=== PATIENT | female | born 1945 | race African-American/Black ===

== ENCOUNTER 2017-03-09 14:42 | Inpatient (IN) | payer OTHER, MEDICARE ==
[~2017-03-09] VITALS: Ht 162.6 cm; Wt 40.9 kg
--- NOTE | ~2017-03-09 | HC ---
[facility] [place] [address] CONSULTATION Name: KELLIE MONROY MEAGHAN Room #: 452-P [facility] IN M.R.#: [id number] Admission: 03/09/17 Attend Phys: Tate Perez MD Discharge: 03/17/17 Date of : 49 Report #: [id number] THIS REPORT FOR: //name// CC: Tate Sanderson DATE OF SERVICE: 03/11/2017 REASON FOR CONSULTATION: Acute respiratory failure. Forty minutes critical care time. IMPRESSION: 1. Acute hypoxic hypercapnic respiratory failure. 2. Metabolic acidosis. 3. 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 4. Crohn's. 5. Possible sepsis. 6. Chronic hypotension, on midodrine. 7. Elevated troponin. PLAN: We will keep on ventilator overnight, continue TPN. We will give fluid bolus. We will check and treat with hydrocortisone for now because of history of steroid use. HISTORY OF PRESENT ILLNESS: A 71-year-old female with history of Crohn's disease, ileostomy, was cachectic. PEG was placed in 2016, improved appetite, was able to have PEG removed; however, continued to have drainage and was admitted because of PEG site pain and drainage and taken to surgery today. Postop, was awakening, was extubated; however, shortly thereafter developed decreasing mental status and desaturation requiring reintubation. Surgery went well. Discussed with anesthesia as well as Dr. Jiang. PAST MEDICAL HISTORY: MEDICATIONS: Included mirtazapine, prednisone 20 daily, paroxetine, Zofran, Florinef, enoxaparin. SURGERIES: In the past include ileostomy, appendectomy, cholecystectomy. FAMILY HISTORY: Noncontributory. SOCIAL HISTORY: Negative tobacco or ETOH. REVIEW OF SYSTEMS: Included Crohn's, hypertension, asthma, GERD, anxiety, depression, osteoporosis per chart. Otherwise, none indicated. [facility] [address] [place] [address] CONSULTATION Name: KELLIE MONROY MEAGHAN Room #: 452-P [facility] IN [facility]#: [id number] Admission: 03/09/17 Attend Phys: Tate Perez MD Discharge: 03/17/17 Date of : 49 Report #: [id number] PHYSICAL EXAMINATION: VITAL SIGNS: Temperature 97.4, pulse 85, respiratory rate 24, BP 74/58. EYES: Negative icterus. LUNGS: Endotracheal tube in place. Subq air noted, left greater than right. HEART: Regular. ABDOMEN: Bowel sounds present, but very decreased. EXTREMITIES: Showed no definite edema. Lab and x-ray were reviewed. Forty minutes critical care time spent. <ELECTRONICALLY SIGNED> By: Ulysses Torres MD 03/21/17 1511 2220 0131 Ulysses Torres MD /nt
--- NOTE | ~2017-03-09 | EKG ---
[address] [employer] [place] [address] ELECTROCARDIOGRAM REPORT Name: KELLIE MONROY Room #: 241-P ADM IN M.R.#: [id number] Admission: 03/09/17 Attend Phys: Tate Perez MD Discharge: Date of : 49 Report #: [id number] THIS REPORT FOR: //name// [facility] Test Date: 2017-03-11 Test Time: 15:03:28 Pat Name: KELLIE MONROY Department: Room: 241 Gender: F Chemistry Laboratory Technician: Ren DUNCAN : 1945 Requested By: Paulino Hill Order Number: [id number] MD: Ignacio Evangelista Measurements Intervals [place] Rate: 85 P: 83 CO: 137 QRS: 79 QRSD: 74 T: 83 QT: 362 QTc: 431 Interpretive Statements Sinus rhythm Atrial premature complexes Poor septal R-wave progression Compared to ECG 03/25/2016 18:10:24 Atrial premature complex(es) now present Low voltage in the lateral leads no longer present Electronically Signed On 03-13-2017 10:46:38 CDT by Ignacio Evangelista [email or web address] <ELECTRONICALLY SIGNED> By: Ignacio Evangelista MD, [facility] 03/13/17 1046 1503 1503 Ignacio Evangelista MD, [facility] /EPI
--- NOTE | ~2017-03-09 | 2DMMODE ---
[facility] [address] [place] [address] 2 D/M-MODE ECHOCARDIOGRAM Name: PORFIRIOKELLIE MEAGHAN Room #: 241-P ADM IN M.R.#: [id number] Admission: 03/09/17 Attend Phys: Tate Perez MD Discharge: Date of : 49 Date of Service: 03/12/17 1351 Report #: [id number] THIS REPORT FOR: //name// APPROVED REPORT Study performed: 03/12/2017 07:48:18 EXAM: Comprehensive 2D, Doppler, and color-flow Echocardiogram Patient Location: Bedside Room #: 241 Status: on-call Other Information Study Quality: Adequate/Patient in ICU on vent. Indications Respiratory failure 2D Dimensions RVDd: 29.33 mm LVEF(%): 26.02 (>50%) IVSd: 7.67 (7-11mm) LVOT Diam: 18.75 (18-24mm) LVDd: 36.44 mm PWd: 7.61 (7-11mm) LVDs: 32.16 (25-40mm) Aortic Root: 32.44 mm Khan's LVEF: 26.02 % Aortic Valve AoV Peak Reji.: 1.12 m/s AO Peak Gr.: 5.02 mmHg LVOT Max P.18 mmHg LVOT Max V: 0.74 m/s DENOTN Vmax: 1.82 cm2 Mitral Valve E/A Ratio: 1.3 MV Decel. Time: 84.04 ms MV E Max Reji.: 0.99 m/s MV A Reji.: 0.78 m/s MV PHT: 24.37 ms IVRT: 59.98 ms Pulmonary Valve PV Peak Reji.: 0.71 m/s PV Peak Gr.: 2.04 mmHg [facility] [address] [place] [address] 2 D/M-MODE ECHOCARDIOGRAM Name: KELLIE MONROY [facility] Room #: [address] [place] [address] IN M.R.#: [id number] Admission: 03/09/17 Attend Phys: Tate Perez MD Discharge: Date of : 49 Date of Service: 03/12/17 1351 Report #: [id number] Tricuspid Valve TR Peak Reji.: 2.51 m/s RAP Estimate: 10.00 mmHg TR Peak Gr.: 25.26 mmHg PA Pressure: 35.00 mmHg Left Ventricle There is normal left ventricular wall thickness. Left ventricular systolic function is decreased. LVEF is 25-30%. Apical "ballooning" could be related to a Takutsubo or stress induced cardiomyopathy This study is not technically sufficient to allow evaluation of the LV diastolic function. Right Ventricle The right ventricle is normal size. Right ventricle is mildly hypokinetic. Atria Left atrium is mildly dilated. The atrial septum is aneurysmal. The right atrium size is normal. Aortic Valve Aortic valve leaflets are mildly thickened. Trace aortic regurgitation. There is no aortic valvular stenosis. Mitral Valve Mitral valve leaflets are mildly thickened. No mitral regurgitation. Tricuspid Valve The tricuspid valve is normal in structure. There is moderate tricuspid regurgitation. Jet is eccentric. The right atrial pressure is estimated at 10 mmHg. There is mild pulmonary hypertension with an estimated PAP of 35mmHg. Pulmonic Valve The pulmonary valve is normal in structure. Trace pulmonic regurgitation. Great Vessels The aortic root is normal in size. Ascending aorta is not well visualized. IVC is normal in size and collapses <50% with inspiration. Pericardium There is no pericardial effusion. [facility] [address] [address] 2 D/M-MODE ECHOCARDIOGRAM Name: KELLIE MONROY [facility] Room #: 241-P [facility] IN .R.#: [id number] Admission: 03/09/17 Attend Phys: Tate Perez MD Discharge: Date of : 49 Date of Service: 03/12/17 1351 Report #: [id number] <Conclusion> Left ventricular systolic function is decreased. LVEF is 25-30%. Apical "ballooning" could be related to a Takutsubo or stress-induced cardiomyopathy Aortic valve leaflets are mildly thickened. No aortic valvular stenosis. Mild insufficiency Mitral valve leaflets are mildly thickened. No mitral regurgitation. Pulmonary artery pressure of 35mmHg There is no pericardial effusion. <ELECTRONICALLY SIGNED> By: Ignacio Evangelista MD, FAC 03/12/17 1351 135 135 Ignacio Evangelista MD, FAC /INF
--- NOTE | ~2017-03-09 | EKG ---
[address] [place] [address] ELECTROCARDIOGRAM REPORT Name: KELLIE MONROY MEAGHAN Room #: 241-P ADM IN M.R.#: [id number] Admission: 03/09/17 Attend Phys: Tate Perez MD Discharge: Date of : 49 Report #: [id number] THIS REPORT FOR: //name// [facility] Test Date: 2017-03-12 Test Time: 08:57:59 Pat Name: KELLIE MONROY Department: Room: 241 P Gender: F Behavior Specialist: FAITH : 1945 Requested By: Ignacio Evangelista Order Number: [id number] MD: Ignacio Evangelista Measurements Intervals [place] Rate: 106 P: 81 [place]: 131 QRS: 86 QRSD: 65 T: 86 QT: 332 QTc: 441 Interpretive Statements Sinus tachycardia Low voltage, extremity leads Nonspecific T abnormalities, lateral leads Compared to ECG 03/25/2016 18:10:24 Atrial premature complex(es) now present Electronically Signed On 03-13-2017 10:53:33 CDT by Ignacio Evangelista [email or web address] <ELECTRONICALLY SIGNED> By: Ignacio Evangelista MD, [facility] 03/13/17 1053 0857 0857 Ignacio Evangelista MD, [facility] /EPI
--- NOTE | ~2017-03-09 | S ---
[facility] [place] [address] SURGICAL PATH RPT PROCEDURE Name: KELLIE WALL MEAGHAN Room #: 452-P ADM IN M.R.#: [id number] Admission: 03/09/17 Date of : 49 Discharge: Report #: [id number] Path Case #: [id number] PATHOLOGY REPORT COLLECTION DATE: 03/11/2017 RECEIVED DATE: 03/11/2017 SUBMITTING PHYS: Dr. Leandro Jiang OTHER PHYS: Dr. Janell Perez SPECIMEN(S) RECEIVED: A.GC fistula remnants B.Enterocutaneous fistula tract * * * * * * * * * * * * FINAL DIAGNOSIS: A. Portion of stomach, "gastrocutaneous fistula remnants," resection: - Fragments of gastric wall, each measuring 1.8 and 3.2 cm showing mild chronic active gastritis. - Negative for intestinal metaplasia or atrophy. B. Fragments of skin and adjacent gastric tissue," enterocutaneous fistula tract", resection: - Marked active inflammation associated with ulceration, compatible with enterocutaneous fistula. (IUV:mgr; 03/15/2017) PATHOLOGIST: Brigitte Galloway M.D. REPORT ELECTRONICALLY SIGNED BY: Brigitte Galloway M.D. DATE/TIME: 03/15/2017 15:26 * * * * * * * * * * * * GROSS PATHOLOGY: A. The specimen is received in formalin labeled "Kellie Wall, GC fistula remnants". Received are two segments of white-sparks, firm soft tissue with staple lines present measuring 1.8 x 0.5 x 0.2 and 3.2 x 1.9 x 1.5 cm in greatest dimensions. Sectioning through the larger segment reveals a fistula measuring 2.0 cm in length. The specimen is submitted representatively in cassette A1. B. The specimen is received in formalin labeled "Kellie Wall, enterocutaneous fistula tract". Received is excision of mcleod-sparks possible skin with attached underlying fibroadipose tissue measuring 2.6 x 1.6 x 2.1 cm in greatest dimensions. There are multiple sutures present on the possible epidermal surface. The surgical margin is inked. The specimen is submitted representatively in cassette B1. [address] [address] SURGICAL PATH RPT PROCEDURE Name: KELLIE WALL MEAGHAN Room #: 452-P ADM IN M.R.#: [id number] Admission: 03/09/17 Date of : 49 Discharge: Report #: [id number] Path Case #: [id number] (CAA; 03/14/2017) CLINICAL HISTORY: GC fistula INITIAL CPT CODE(S): A; 76321 B; 63401 Professional services performed by [facility] at [address], [place] [address] Technical services performed by [facility] at [address] [place] [address]., [address], [place] [address]. [facility] [address] [address] PHONE: [phone] DIRECTOR: Jose Kwan M.D. * * * END OF REPORT * * *
--- NOTE | ~2017-03-09 | HC ---
[facility] [place] [address] CONSULTATION Name: PORFIRIOKELLIE MEAGHAN Room #: 452-P ADM IN M.R.#: [id number] Admission: 03/09/17 Attend Phys: Tate Perez MD Discharge: Date of : 49 Report #: [id number] THIS REPORT FOR: //name// CC: Tate Sanderson DATE OF SERVICE: 03/11/2017 REASON FOR CONSULTATION: Elevated troponin of 0.31. HISTORY OF PRESENT ILLNESS: The patient is a 71-year-old woman with a history of multiple comorbidities including Crohn's disease, chronic diarrhea with severe protein-calorie malnutrition, cachexia, and remote atrial fibrillation in 2014. At that time, she was evaluated by Dr. Cheng with an echocardiogram, which was normal. She now presents with a gastrocutaneous fistula and had a laparoscopic partial gastrectomy and closure of the fistula and adhesiolysis today. Her post-procedural course was notable for progressive respiratory distress and hypoxemia requiring intubation. She is currently sedated and intubated. Per discussion with the nursing staff, she was hypoxemic and tachypneic for a period of time prior to the intubation. An EKG in the setting of respiratory distress was normal. Serial cardiac enzymes were ordered and have been minimally elevated at 0.17 and 0.31. A post-intubation CT scan of the chest demonstrated moderate subcutaneous emphysema along the epigastric region, also involving the left hemithorax, bibasilar atelectasis was present. In review of multiple hospital records, there is no mention of coronary artery disease. No history of heart failure. No orthopnea, paroxysmal nocturnal dyspnea, or lower extremity edema. No recent fevers or chills. ALLERGIES: She is allergic to LACTOSE and PENICILLIN. CURRENT MEDICATIONS: Include cholestyramine, Florinef 0.1 mg daily, midodrine 10 mg 3 times a day, prednisone, paroxetine 10 mg daily, iron, and tramadol for pain. Past history and medical records have been reviewed and include a history of Crohn's disease, asthma, osteoporosis, appendectomy, cholecystectomy, and chronic hypotension. SOCIAL HISTORY: She has never been a smoker, nondrinker. FAMILY HISTORY: Unremarkable for premature coronary disease. REVIEW OF SYSTEMS: Not obtainable. PHYSICAL EXAMINATION: GENERAL: Reveals sedated, intubated woman. [facility] [address] [place] [address] CONSULTATION Name: KELLIE MONROY [facility] Room #: 2[facility] IN M.R.#: [id number] Admission: 03/09/17 Attend Phys: Tate Perez MD Discharge: Date of : 49 Report #: [id number] VITAL SIGNS: Blood pressure is 107/63, heart rate of 90 and regular, she is afebrile, 5 feet 4 inches tall, and 83 pounds. HEENT: There are neither xanthelasma, subcutaneous xanthomata, oral mucosal or digital cyanosis or kyphoscoliosis present. CHEST: Subcutaneous emphysema is noted over the left chest. CARDIAC: Regular rate and rhythm with normal S1, S2. No murmurs or rubs. ABDOMEN: Soft. EXTREMITIES: Without cyanosis, clubbing, or edema. Radial pulses are 2+. NEUROLOGIC: She is sedated with a nonfocal exam. EKG as detailed above. LABORATORY DATA: Sodium is 135, potassium 3.9, creatinine 0.9, and glucose 304. Troponin 0.31. ProBNP of 2649. White count 15,000, hemoglobin 9, hematocrit 29, platelet count 309, and 19% bands. Head CT is normal. IMPRESSION: 1. Hypoxemic respiratory failure. 2. Tiny troponin elevation most consistent with supply-demand mismatch in the setting of hypoxemia, respiratory failure, and probable sepsis. 3. Recent repair of a gastrocutaneous fistula. 4. Crohn's disease, on chronic steroid therapy. 5. Cachexia; anorexia. RECOMMENDATIONS: 1. Echocardiogram with Doppler. 2. Supportive measures. I do not feel that this is an acute ischemic event, but troponin levels reflect current and ongoing stressors. I would have a very conservative approach in this woman with multiple comorbidities and life-limiting processes. Thank you for asking me to participate in her care. <ELECTRONICALLY SIGNED> By: Ignacio Evangelista MD, FACC 03/15/17 1633 1857 0012 Ignacio Evangelista MD, FACC /nt
[~2017-03-09 14:42] MED LIST: ACETAMINOPHEN325 M1 PO; ACIDOPHILUS1 EAC4 PO; AMMONIUM LACTA225 GM TP; AZATHIOPRINE50 MG PO; BIOTENE PBF473 ML PO; BUSPIRONE HCL10 MG PO; BYSTOLIC2.5 MG PO; CALCIUM 500 +1 EAC5 PO; CIPRO250 M1 PO; CYPROHEPTADINE 44 MG PO; DIPHENOXYLATE/A1 TA1 PO; ENOXAPARIN30 MG/0.1 SUBQ; FLORINEF ACETA0.1 MG PO; FLOVENT DISKUS50 MCG IH; IRON325 PO; LORTAB 5-500 T1 EAC1 PO; MAGNESIUM400 MG PO; MIDODRINE HCL 55 M1 PO; OMEPRAZOLE40 MG PO; ONDANSETRON HCL4 M1 IV PUSH; PAXIL10 MG PO; PREDNISONE 10 M10 MG PO; PREDNISONE 20 M20 M1 PO; PREVALITE PACKE1 PKT PO; PROTONIX 20 MG20 M1 PO; PROVENTIL HFA6.7 G1 INH; REMERON15 MG PO; RISEDRONATE SO150 MG PO; SYMBICORT160 MCG/4. INH; UNICOMPLEX M TA1 TA1 PO; ZANTAC 150MG T150 MG PO; ZOFRAN ODT4 MG DISSOLVE; ZOFRAN ODT4 MG SUBLING
[2017-03-09 16:50] VITALS: BP 89/57
[2017-03-09 17:54] LABS: HEMATOCRIT 33.5 % (37.0-47.0); MCH 29.1 pg (26.0-34.0); MCHC 32.7 g/dL (28.0-37.0); RBC 3.77 mil/uL (4.20-5.00); RDW 16.3 % (10.5-14.5); WBC 13.6 thou/uL (4.0-11.0)
[2017-03-09 18:07] LABS: ALBUMIN 2.1 g/dL (3.4-5.0); CALCIUM 8.4 mg/dL (8.5-10.1); CREATININE 1.7 mg/dL (0.6-1.0); POTASSIUM 4.2 mmol/L (3.5-5.1); TOTAL BILIRUBIN 0.5 mg/dL (<0.1-1.0); TOTAL PROTEIN 5.9 g/dL (6.4-8.2)
[2017-03-09 19:50] VITALS: BP 94/69
[2017-03-09] MEDS ORDERED: TRAMADOL 50 MG50 MG PO (20:42)
[2017-03-09 23:30] VITALS: BP 98/73
[2017-03-10 03:50] VITALS: BP 109/74
[2017-03-10 05:50] LABS: ALBUMIN 1.9 g/dL (3.4-5.0); CREATININE 1.3 mg/dL (0.6-1.0); MAGNESIUM 1.9 mg/dL (1.8-2.4); PHOSPHORUS 3.4 mg/dL (2.5-4.9); POTASSIUM 3.3 mmol/L (3.5-5.1); TOTAL BILIRUBIN 0.4 mg/dL (<0.1-1.0); TOTAL PROTEIN 5.4 g/dL (6.4-8.2)
[2017-03-10 08:00] VITALS: BP 103/60
[2017-03-10 16:00] VITALS: BP 110/80
[2017-03-10 20:00] VITALS: BP 93/62
[2017-03-11] VITALS (26 sets, daily range): BP systolic 72–140; BP diastolic 54–81
[2017-03-11 07:54] LABS: HEMATOCRIT 31.4 % (37.0-47.0); HEMOGLOBIN 10.4 gm/dL (12.0-15.0); MCH 29.5 pg (26.0-34.0); MCHC 33.2 g/dL (28.0-37.0); MCV 88.6 fL (80.0-100.0); RBC 3.55 mil/uL (4.20-5.00); RDW 16.3 % (10.5-14.5); WBC 7.5 thou/uL (4.0-11.0)
[2017-03-11 08:05] LABS: CALCIUM 8.5 mg/dL (8.5-10.1); PHOSPHORUS 2.5 mg/dL (2.5-4.9); POTASSIUM 3.7 mmol/L (3.5-5.1)
[2017-03-11 14:45] LABS: ABG SAMPLE TYPE ARTERIAL; BE(vivo) -10.9 mmol/L (-2 to +3); HCO3 17.6 mmol/L (22.0-26.0); LACTATE 1.96 mmol/L (0.5-2.0); O2(CT) 14.7 mL/dL (15.0-23.0); O2Hb 94.9 % (92.0-98.0); PCO2 50.6 mmHg (35.0-45.0); tCO2 19.1 mmol/L (24.0-30.0)
[2017-03-11 14:48] LABS: pH 7.159 (7.360-7.450)
[2017-03-11 14:49] LABS: STICK SITE L.RADIAL
[2017-03-11 15:29] LABS: HEMATOCRIT 29.9 % (37.0-47.0); HEMOGLOBIN 9.8 gm/dL (12.0-15.0); MCH 29.2 pg (26.0-34.0); MCHC 32.7 g/dL (28.0-37.0); MCV 89.2 fL (80.0-100.0); PLATELET COUNT 309 thou/uL (150-400); RBC 3.35 mil/uL (4.20-5.00); RDW 16.4 % (10.5-14.5); WBC 15.3 thou/uL (4.0-11.0)
[2017-03-11 15:30] LABS: MANUAL DIFF YES
[2017-03-11 15:35] LABS: CALCIUM 7.6 mg/dL (8.5-10.1); CREATININE 0.9 mg/dL (0.6-1.0); POTASSIUM 3.9 mmol/L (3.5-5.1)
[2017-03-11 15:39] LABS: ALBUMIN 1.7 g/dL (3.4-5.0); TOTAL BILIRUBIN 0.3 mg/dL (<0.1-1.0); TOTAL PROTEIN 4.9 g/dL (6.4-8.2)
[2017-03-11 15:40] LABS: INR 1.2; PROTIME 12.3 Seconds (9.3-11.4)
[2017-03-11 16:12] LABS: ABSOLUTE NEUTROPHILS 14.5 thou/uL (1.4-8.2); ANISOCYTOSIS 1+; PROMYELOCYTES 1 %; TOTAL CELL COUNT 100
[2017-03-11 16:47] LABS: ABG SAMPLE TYPE ARTERIAL; BE(vivo) -2.1 mmol/L (-2 to +3); HCO3 21.6 mmol/L (22.0-26.0); LACTATE 1.71 mmol/L (0.5-2.0); O2Hb 97.8 % (92.0-98.0); PCO2 33.5 mmHg (35.0-45.0); PO2 156.9 mmHg (80.0-100.0); STICK SITE R.BRACHIAL; TIDAL VOLUME 400 ml; pH 7.428 (7.360-7.450); sO2 99.1 % (92.0-98.0); tCO2 22.7 mmol/L (24.0-30.0)
[2017-03-12] VITALS (45 sets, daily range): BP systolic 107–152; BP diastolic 58–98
[2017-03-12 05:03] LABS: HEMATOCRIT 29.6 % (37.0-47.0); HEMOGLOBIN 9.7 gm/dL (12.0-15.0); MCHC 32.9 g/dL (28.0-37.0); MCV 88.1 fL (80.0-100.0); PLATELET COUNT 303 thou/uL (150-400); RBC 3.36 mil/uL (4.20-5.00); RDW 16.1 % (10.5-14.5); WBC 14.9 thou/uL (4.0-11.0)
[2017-03-12 05:05] LABS: MANUAL DIFF YES
[2017-03-12 05:27] LABS: ALBUMIN 1.8 g/dL (3.4-5.0); CALCIUM 7.8 mg/dL (8.5-10.1); CREATININE 1.1 mg/dL (0.6-1.0); POTASSIUM 4.7 mmol/L (3.5-5.1); TOTAL BILIRUBIN 0.2 mg/dL (<0.1-1.0); TOTAL PROTEIN 5.2 g/dL (6.4-8.2); TROPONIN-I 0.4 ng/mL (<0.04-0.07)
[2017-03-12 05:29] LABS: ABG COMMENT A/C 24; ABG SAMPLE TYPE ARTERIAL; BE(vivo) -2.1 mmol/L (-2 to +3); LACTATE 2.31 mmol/L (0.5-2.0); O2(CT) 13.5 mL/dL (15.0-23.0); O2Hb 96.8 % (92.0-98.0); PCO2 30.1 mmHg (35.0-45.0); PO2 108.6 mmHg (80.0-100.0); STICK SITE R.BRACHIAL; TIDAL VOLUME 400 ml; pH 7.462 (7.360-7.450); sO2 98.3 % (92.0-98.0); tCO2 21.9 mmol/L (24.0-30.0)
[2017-03-12 05:39] LABS: ABSOLUTE NEUTROPHILS 14.2 thou/uL (1.4-8.2); ANISOCYTOSIS 1+; TOTAL CELL COUNT 100
[2017-03-12 06:16] LABS: MAGNESIUM 1.6 mg/dL (1.8-2.4)
[2017-03-12 10:25] LABS: ABG COMMENT CPAP X 1 HR; ABG SAMPLE TYPE ARTERIAL; BE(vivo) -2.5 mmol/L (-2 to +3); HCO3 20.3 mmol/L (22.0-26.0); LACTATE 1.95 mmol/L (0.5-2.0); O2(CT) 13.2 mL/dL (15.0-23.0); O2Hb 97.5 % (92.0-98.0); PCO2 28.1 mmHg (35.0-45.0); PO2 135.7 mmHg (80.0-100.0); Pressure Support 8 cm H20; STICK SITE L.RADIAL; pH 7.477 (7.360-7.450); sO2 98.9 % (92.0-98.0); tCO2 21.2 mmol/L (24.0-30.0)
[2017-03-13] VITALS (19 sets, daily range): BP systolic 104–149; BP diastolic 69–111
[2017-03-13 06:15] LABS: HEMATOCRIT 26.1 % (37.0-47.0); HEMOGLOBIN 8.6 gm/dL (12.0-15.0); MCH 29.2 pg (26.0-34.0); MCHC 32.9 g/dL (28.0-37.0); MCV 88.9 fL (80.0-100.0); PLATELET COUNT 299 thou/uL (150-400); RBC 2.94 mil/uL (4.20-5.00); RDW 16.5 % (10.5-14.5); WBC 15.7 thou/uL (4.0-11.0)
[2017-03-13 06:26] LABS: MANUAL DIFF YES
[2017-03-13 06:32] LABS: ALBUMIN 1.7 g/dL (3.4-5.0); CALCIUM 7.6 mg/dL (8.5-10.1); MAGNESIUM 1.9 mg/dL (1.8-2.4); PHOSPHORUS 2.5 mg/dL (2.5-4.9); POTASSIUM 3.7 mmol/L (3.5-5.1); TOTAL BILIRUBIN 0.2 mg/dL (<0.1-1.0); TOTAL PROTEIN 4.7 g/dL (6.4-8.2)
[2017-03-13 10:11] LABS: ABSOLUTE NEUTROPHILS 13.3 thou/uL (1.4-8.2); METAMYELOCYTES 2 %; TOTAL CELL COUNT 100
[2017-03-13 10:12] LABS: ANISOCYTOSIS 1+
[2017-03-14 03:47] VITALS: BP 124/93
[2017-03-14 04:49] LABS: HEMOGLOBIN 9.7 gm/dL (12.0-15.0); MCH 28.6 pg (26.0-34.0); MCHC 32.4 g/dL (28.0-37.0); MCV 88.2 fL (80.0-100.0); PLATELET COUNT 350 thou/uL (150-400); RDW 16.7 % (10.5-14.5); WBC 16.3 thou/uL (4.0-11.0)
[2017-03-14 04:59] LABS: MANUAL DIFF YES
[2017-03-14 05:05] LABS: CALCIUM 8.2 mg/dL (8.5-10.1); CREATININE 0.9 mg/dL (0.6-1.0); POTASSIUM 3.1 mmol/L (3.5-5.1)
[2017-03-14 07:59] VITALS: BP 100/68
[2017-03-14 08:52] LABS: ABSOLUTE NEUTROPHILS 14.3 thou/uL (1.4-8.2); PLATELET ESTIMATE NORMAL; TOTAL CELL COUNT 100
[2017-03-14 09:19] LABS: ABG SAMPLE TYPE ARTERIAL; BE(vivo) 3.9 mmol/L (-2 to +3); HCO3 27.1 mmol/L (22.0-26.0); LACTATE 1.73 mmol/L (0.5-2.0); O2(CT) 13.1 mL/dL (15.0-23.0); O2Hb 92.7 % (92.0-98.0); PCO2 35.4 mmHg (35.0-45.0); pH 7.502 (7.360-7.450); sO2 95.3 % (92.0-98.0); tCO2 28.2 mmol/L (24.0-30.0)
[2017-03-14 09:20] LABS: STICK SITE R.BRACHIAL
[2017-03-14 11:34] LABS: URINE BILIRUBIN NEGATIVE (Negative); URINE BLOOD NEGATIVE (Negative); URINE COLOR YELLOW; URINE GLUCOSE-RANDOM* NEGATIVE (Negative); URINE KETONES NEGATIVE (Negative); URINE NITRITE NEGATIVE (Negative); URINE PROTEIN (DIPSTICK) NEGATIVE (Negative); URINE UROBILINOGEN 0.2 E.U./dl (0.2-1.0)
[2017-03-14 11:38] VITALS: BP 134/66
[2017-03-14 12:42] LABS: MAGNESIUM 1.7 mg/dL (1.8-2.4); POTASSIUM 3.4 mmol/L (3.5-5.1)
[2017-03-14 15:40] VITALS: BP 118/80
[2017-03-14 18:56] VITALS: BP 107/70; BP 88/59
[2017-03-15 03:12] VITALS: BP 117/82
[2017-03-15 05:50] LABS: HEMATOCRIT 27.2 % (37.0-47.0); HEMOGLOBIN 9.3 gm/dL (12.0-15.0); MCH 29.8 pg (26.0-34.0); MCHC 34.2 g/dL (28.0-37.0); MCV 87.2 fL (80.0-100.0); PLATELET COUNT 329 thou/uL (150-400); RBC 3.12 mil/uL (4.20-5.00); RDW 16.6 % (10.5-14.5); WBC 15.8 thou/uL (4.0-11.0)
[2017-03-15 05:58] LABS: CALCIUM 8.1 mg/dL (8.5-10.1); MAGNESIUM 1.9 mg/dL (1.8-2.4); PHOSPHORUS 3.5 mg/dL (2.5-4.9); POTASSIUM 3.6 mmol/L (3.5-5.1)
[2017-03-15 06:13] LABS: MANUAL DIFF YES
[2017-03-15 06:54] LABS: ABSOLUTE NEUTROPHILS 12.8 thou/uL (1.4-8.2); METAMYELOCYTES 5 %; MYELOCYTES 1 %; TOTAL CELL COUNT 100
[2017-03-15 06:55] LABS: ANISOCYTOSIS 1+; POLYCHROMASIA OCCASIONAL
[2017-03-15 08:06] VITALS: BP 129/87
[2017-03-15 12:00] VITALS: BP 95/62
[2017-03-15 16:16] VITALS: BP 100/70
[2017-03-15 20:30] VITALS: BP 106/80
[2017-03-16 05:59] VITALS: BP 100/73
[2017-03-16 06:12] LABS: HEMOGLOBIN 8.9 gm/dL (12.0-15.0); MCV 87.9 fL (80.0-100.0); RBC 3.08 mil/uL (4.20-5.00); RDW 16.4 % (10.5-14.5); WBC 15.5 thou/uL (4.0-11.0)
[2017-03-16 06:22] LABS: CALCIUM 7.7 mg/dL (8.5-10.1); CREATININE 0.9 mg/dL (0.6-1.0); POTASSIUM 3.5 mmol/L (3.5-5.1)
[2017-03-16 08:09] VITALS: BP 146/100
[2017-03-16 11:44] VITALS: BP 99/71
[2017-03-16 15:47] VITALS: BP 168/82
[2017-03-16 19:19] VITALS: BP 91/63
[2017-03-17 03:54] VITALS: BP 120/82
[2017-03-17 07:13] VITALS: BP 107/73
[2017-03-17 07:26] LABS: HEMATOCRIT 27.6 % (37.0-47.0); HEMOGLOBIN 9.1 gm/dL (12.0-15.0); MCH 29.2 pg (26.0-34.0); MCHC 32.8 g/dL (28.0-37.0); MCV 89.1 fL (80.0-100.0); PLATELET COUNT 334 thou/uL (150-400); RDW 16.6 % (10.5-14.5); WBC 16.3 thou/uL (4.0-11.0)
[2017-03-17 07:34] LABS: CALCIUM 8.1 mg/dL (8.5-10.1)
[2017-03-17 07:38] LABS: MANUAL DIFF YES
[2017-03-17 08:15] LABS: ABSOLUTE NEUTROPHILS 13.4 thou/uL (1.4-8.2); ANISOCYTOSIS 1+; METAMYELOCYTES 3 %; TOTAL CELL COUNT 100
[2017-03-17] MEDS ORDERED: BACTRIM DS TAB1 EACH PO (09:51)
[2017-03-17] MEDS ORDERED: CARVEDILOL3.125 MG PO (09:51)
[2017-03-17] MEDS ORDERED: PEPCID20 MG PO (09:52)
[2017-03-17] MEDS ORDERED: COZAAR 25 MG TA25 M1 PO (09:52)
[2017-03-17 11:15] VITALS: BP 107/73
== END 2017-03-17 12:30 | disposition home or self-care (01) | DRG 871 ==
LOC: 3N 14:42 → 4W 14:42 → ICU 03-11 15:35 → 4W 03-13 13:05
PROVIDERS: Internal Medicine; Internal Medicine Pulmonary Disease; Nurse Practitioner Adult Health; Otolaryngology
PROC: 02HV33Z Insertion of Infusion Device into Superior Vena Cava, Percutaneous Approach (ICD-10-PCS; 2017-03-09)
PROC: B548ZZA Ultrasonography of Superior Vena Cava, Guidance (ICD-10-PCS; 2017-03-09)
PROC: 3E0336Z Introduction of Nutritional Substance into Peripheral Vein, Percutaneous Approach (ICD-10-PCS; 2017-03-10)
PROC: 0DB64ZZ Excision of Stomach, Percutaneous Endoscopic Approach (ICD-10-PCS; principal; 2017-03-11)
PROC: 5A1935Z Respiratory Ventilation, Less than 24 Consecutive Hours (ICD-10-PCS; 2017-03-12)
PROC: 0BH17EZ Insertion of Endotracheal Airway into Trachea, Via Natural or Artificial Opening (ICD-10-PCS; 2017-03-12)
DX: A41.9 Sepsis, unspecified organism (principal); J96.01 Acute respiratory failure with hypoxia; E43 Unspecified severe protein-calorie malnutrition; J96.02 Acute respiratory failure with hypercapnia; K63.2 Fistula of intestine; K50.90 Crohn's disease, unspecified, without complications; I42.9 Cardiomyopathy, unspecified; J98.11 Atelectasis; I50.20 Unspecified systolic (congestive) heart failure; Z68.1 Body mass index [BMI] 19.9 or less, adult; E87.2 Acidosis; M81.0 Age-related osteoporosis without current pathological fracture; I95.9 Hypotension, unspecified; R13.10 Dysphagia, unspecified; J45.909 Unspecified asthma, uncomplicated; F41.9 Anxiety disorder, unspecified; F32.9 Major depressive disorder, single episode, unspecified; J43.9 Emphysema, unspecified; K21.9 Gastro-esophageal reflux disease without esophagitis; E87.6 Hypokalemia; R73.9 Hyperglycemia, unspecified; Z88.0 Allergy status to penicillin; Z91.011 Allergy to milk products; Z90.49 Acquired absence of other specified parts of digestive tract; Z93.1 Gastrostomy status; Z93.2 Ileostomy status; Z87.440 Personal history of urinary (tract) infections
CPT/HCPCS: 10045; 10047; 10078; 10795; 27000; 50010; 50101; 50249; 50290; 50386; 50455; 50555; 50740; 50944; 50962; 51412; 52265; 53314; 54022; 54118; 56462; 56525; 56526; 57092; 62110; 62900; 70005

== ENCOUNTER 2017-05-11 10:37 | Inpatient (IN) | payer OTHER, MEDICARE ==
[~2017-05-11] VITALS: Ht 162.6 cm; Wt 33.1 kg
--- NOTE | ~2017-05-11 | H ---
[facility] [place] [address] HISTORY AND PHYSICAL Name: KELLIE MONROY MEAGHAN Room #: 440-P ADM IN M.R.#: [id number] Admission: 05/11/17 Attend Phys: Tate Perez MD Discharge: Date of : 49 Report #: [id number] THIS REPORT FOR: //name// CC: Tate Sanderson DATE OF SERVICE: 05/11/2017 HISTORY OF PRESENT ILLNESS: The patient is a 71-year-old female who came to our office yesterday with major diarrhea, coming from her ileostomy and had been very weak and lethargic. For this reason, we elected to have the patient admitted to the hospital as a direct admit. PAST MEDICAL HISTORY: Significant for Crohn's disease with chronic diarrhea. The patient had a history of generalized weakness previously, dehydration, severe protein calorie malnutrition, previous history of enterocutaneous fistula, previous history of bowel resection, cellulitis of the abdominal wall and removal of PEG tube. Right wrist drop, acute kidney failure, mild depression, orthostatic hypotension, appendectomy, cholecystectomy, insertion of PEG tube and removal of the PEG tube and diverting ileostomy. MEDICATIONS: The patient's medications from the clinic include paroxetine 20 mg daily, Prostate 2.4 g orally, tramadol 50 mg daily and midodrine 10 mg daily. ALLERGIES: PENICILLIN. SOCIAL HISTORY: The patient denies any smoking, alcohol use or drug use. The patient lives with her daughter. FAMILY HISTORY: Noncontributory. REVIEW OF SYSTEMS: The patient is alert, but continued to be somewhat lethargic. She denies any headache, blurred vision, runny nose, sore throat, cough, chest pain, shortness of breath or palpitation. She denies any nausea, vomiting or changes in her bowels but she continued to have the diarrhea. She denies any pain in the arms or legs. PHYSICAL EXAMINATION: VITAL SIGNS: Show a temperature of 97.1, pulse 88, respirations 16, blood pressure 86/65 and last blood pressure was 101/72. HEAD AND NECK: Unremarkable. NECK: Supple. LUNGS: Clear to auscultation with poor respiratory effort. CARDIOVASCULAR: S1, S2, without any murmur or gallop. ABDOMEN: Benign. Bowel sounds were positive. EXTREMITIES: Without any edema. [address] [address] HISTORY AND PHYSICAL Name: KELLIE MONROY [facility] Room #: 440-P ADM IN M.R.#: [id number] Admission: 05/11/17 Attend Phys: Tate Perez MD Discharge: Date of : 49 Report #: [id number] LABORATORY DATA: The patient's PA and lateral chest x-ray showed no acute process. CBC showed a white count of 5.7, hemoglobin 15.6, hematocrit 46.3, platelet count 414, neutrophils are 79%. Comprehensive metabolic panel showed a sodium of 121, potassium 3.8, chloride 84, bicarbonate 20, BUN 117, creatinine 2.6, glucose 131, AST 21, total bilirubin 0.8, ALT 27, total protein is 9 and CRP was 5. The patient's urinalysis showed trace ketones, blood +2, leukocytes +3, white blood cells more than 25. Stool for C. diff came back positive. ASSESSMENT AND PLAN: 1. Anorexia and cachexia. 2. Crohn's disease, status post ileostomy. 3. Clostridium difficile colitis. 4. Ongoing diarrhea. 5. Dehydration. 6. Acute kidney injury. 7. Severe protein calorie malnutrition. The patient was admitted to the hospital with the above-mentioned diagnoses. I will go ahead and continue with the IV hydration for now. I will start the patient on vancomycin for her Clostridium difficile colitis. I will resume the patient's paroxetine and monitor her labs very closely. The patient to start physical therapy and occupational therapy. <ELECTRONICALLY SIGNED> By: Tate Perez MD 05/13/17 0636 0743 0816 Tate Perez MD /nt
[~2017-05-11 10:37] MED LIST changes: +BACTRIM DS TAB1 EACH PO; +CARVEDILOL3.125 MG PO; +COZAAR 25 MG TA25 M1 PO; +PEPCID20 MG PO; +TRAMADOL 50 MG50 MG PO
[2017-05-11 11:26] VITALS: BP 86/65
[2017-05-11 14:09] LABS: ABSOLUTE NEUTROPHILS 4.6 thou/uL (1.4-8.2); BASOPHILS 0.4 % (0.0-2.0); EOSINOPHILS 0.1 % (0.0-3.0); HEMATOCRIT 46.3 % (37.0-47.0); HEMOGLOBIN 15.6 gm/dL (12.0-15.0); LYMPHOCYTES 15.8 % (24.0-44.0); MCH 29.1 pg (26.0-34.0); MCHC 33.8 g/dL (28.0-37.0); MCV 86.3 fL (80.0-100.0); PLATELET COUNT 414 thou/uL (150-400); POLYS 79.7 % (36.0-66.0); RBC 5.37 mil/uL (4.20-5.00); RDW 13.4 % (10.5-14.5); WBC 5.7 thou/uL (4.0-11.0)
[2017-05-11 14:20] LABS: MANUAL DIFF NO
[2017-05-11 15:48] LABS: ALBUMIN 4.5 g/dL (3.4-5.0); CALCIUM 9.8 mg/dL (8.5-10.1); CREATININE 2.6 mg/dL (0.6-1.0); POTASSIUM 3.8 mmol/L (3.5-5.1); TOTAL BILIRUBIN 0.8 mg/dL (<0.1-1.0)
[2017-05-11 16:39] VITALS: BP 95/67
[2017-05-11 17:45] LABS: URINE BLOOD 2+ (Negative); URINE COLOR YELLOW; URINE GLUCOSE-RANDOM* NEGATIVE (Negative); URINE KETONES TRACE (Negative); URINE PROTEIN (DIPSTICK) 1+ (Negative); URINE SPECIFIC GRAVITY 1.025 (1.003-1.035); URINE UROBILINOGEN 0.2 E.U./dl (0.2-1.0)
[2017-05-11 17:54] LABS: ICTOTEST (BILI CONFIRMATORY) Negative (Negative); URINE BILIRUBIN NEGATIVE (Negative); URINE LEUKOCYTES-REFLEX 3+ (Negative)
[2017-05-11 17:57] LABS: CRYSTALS None Seen /LPF (None Seen); HYALINE CASTS 0-3 Few /LPF (None Seen); SQUAMOUS >10 Many /LPF (0-3); URINE RBC 3-10 Few /HPF (0-2); URINE WBC-REFLEX >25 Many /HPF (0-5)
[2017-05-11 17:58] LABS: YEAST-REFLEX Present (None Seen)
[2017-05-11 20:05] VITALS: BP 106/73
[2017-05-12 05:43] VITALS: BP 101/72
[2017-05-12 08:00] VITALS: BP 106/78
[2017-05-12 15:22] LABS: HEMATOCRIT 37.4 % (37.0-47.0); HEMOGLOBIN 12.6 gm/dL (12.0-15.0); MCH 28.9 pg (26.0-34.0); MCHC 33.8 g/dL (28.0-37.0); MCV 85.7 fL (80.0-100.0); RBC 4.37 mil/uL (4.20-5.00); WBC 3.8 thou/uL (4.0-11.0)
[2017-05-12 15:29] LABS: POTASSIUM 3.4 mmol/L (3.5-5.1)
[2017-05-12 15:31] LABS: CREATININE 1.4 mg/dL (0.6-1.0)
[2017-05-12 16:00] VITALS: BP 93/71
[2017-05-12 20:46] VITALS: BP 89/65
[2017-05-13 04:07] VITALS: BP 106/74
[2017-05-13 06:26] LABS: ABSOLUTE NEUTROPHILS 2.5 thou/uL (1.4-8.2); BASOPHILS 0.6 % (0.0-2.0); EOSINOPHILS 0.9 % (0.0-3.0); HEMATOCRIT 37.1 % (37.0-47.0); HEMOGLOBIN 12.5 gm/dL (12.0-15.0); LYMPHOCYTES 23.3 % (24.0-44.0); MCHC 33.6 g/dL (28.0-37.0); MCV 86.5 fL (80.0-100.0); PLATELET COUNT 304 thou/uL (150-400); POLYS 65.2 % (36.0-66.0); RBC 4.29 mil/uL (4.20-5.00); RDW 13.2 % (10.5-14.5); WBC 3.8 thou/uL (4.0-11.0)
[2017-05-13 06:27] LABS: MANUAL DIFF NO
[2017-05-13 06:40] LABS: CALCIUM 7.7 mg/dL (8.5-10.1); CREATININE 1.1 mg/dL (0.6-1.0); MAGNESIUM 1.4 mg/dL (1.8-2.4); POTASSIUM 3.6 mmol/L (3.5-5.1)
[2017-05-13 07:12] VITALS: BP 107/71
[2017-05-13 15:58] VITALS: BP 106/76
[2017-05-13 19:52] VITALS: BP 106/75
[2017-05-14 05:22] VITALS: BP 113/88
[2017-05-14 08:00] VITALS: BP 106/81
[2017-05-14 16:00] VITALS: BP 106/81
[2017-05-15 02:49] VITALS: BP 107/77
[2017-05-15 07:32] LABS: ABSOLUTE NEUTROPHILS 2.5 thou/uL (1.4-8.2); BASOPHILS 0.8 % (0.0-2.0); EOSINOPHILS 1.6 % (0.0-3.0); HEMATOCRIT 37.2 % (37.0-47.0); HEMOGLOBIN 12.5 gm/dL (12.0-15.0); LYMPHOCYTES 35.2 % (24.0-44.0); MCH 28.8 pg (26.0-34.0); MCHC 33.5 g/dL (28.0-37.0); MONOCYTES 7.2 % (1.0-8.0); PLATELET COUNT 259 thou/uL (150-400); POLYS 55.2 % (36.0-66.0); RBC 4.33 mil/uL (4.20-5.00); RDW 13.5 % (10.5-14.5); WBC 4.5 thou/uL (4.0-11.0)
[2017-05-15 07:34] LABS: MANUAL DIFF NO
[2017-05-15 07:41] LABS: CALCIUM 7.2 mg/dL (8.5-10.1); CREATININE 0.9 mg/dL (0.6-1.0); POTASSIUM 3.7 mmol/L (3.5-5.1)
[2017-05-15 08:00] VITALS: BP 113/79
[2017-05-15 16:00] VITALS: BP 106/79
[2017-05-15 20:40] VITALS: BP 110/78
[2017-05-16 05:20] VITALS: BP 118/81
[2017-05-16 05:49] LABS: CALCIUM 7.3 mg/dL (8.5-10.1); CREATININE 0.9 mg/dL (0.6-1.0); POTASSIUM 4.5 mmol/L (3.5-5.1)
[2017-05-16] MEDS ORDERED: COLESTID1 GM PO (07:53)
[2017-05-16] MEDS ORDERED: VANCOMYCIN HCL10 GM PO (07:53)
[2017-05-16] MEDS ORDERED: MARINOL 2.5 MG2.5 M1 PO (07:54)
[2017-05-16] MEDS ORDERED: PAXIL 20 MG TAB20 M1 PO (07:54)
[2017-05-16] MEDS ORDERED: CLOTRIMAZOLE 1%15 G1 TOP (07:55)
[2017-05-16 08:30] VITALS: BP 118/81
== END 2017-05-16 10:11 | disposition home or self-care (01) | DRG 371 ==
LOC: 4E 10:37 → 4S 10:52 → ENTRNSPT 05-16 09:54 → EDTRNSPTSTS 05-16 10:00 → 4S 05-16 10:11
PROVIDERS: Internal Medicine; Nurse Practitioner Adult Health
DX: A04.7 Enterocolitis due to Clostridium difficile (principal); E43 Unspecified severe protein-calorie malnutrition; N17.9 Acute kidney failure, unspecified; K50.90 Crohn's disease, unspecified, without complications; Z68.1 Body mass index [BMI] 19.9 or less, adult; M81.0 Age-related osteoporosis without current pathological fracture; E86.0 Dehydration; R13.10 Dysphagia, unspecified; K22.2 Esophageal obstruction; F32.9 Major depressive disorder, single episode, unspecified; Z90.49 Acquired absence of other specified parts of digestive tract; Z79.899 Other long term (current) drug therapy; Z93.2 Ileostomy status; Z88.0 Allergy status to penicillin; Z88.8 Allergy status to other drugs, medicaments and biological substances
CPT/HCPCS: 10102; 27001

== ENCOUNTER 2018-06-08 17:44 | Emergency (ER) | payer OTHER, MEDICARE ==
[~2018-06-08] VITALS: Ht 162.6 cm; Wt 48.1 kg
[~2018-06-08 17:44] MED LIST changes: +CLOTRIMAZOLE 1%15 G1 TOP; +COLESTID1 GM PO; +FLAGYL 250 MG250 MG PO; +MARINOL 2.5 MG2.5 M1 PO; +PAXIL 20 MG TAB20 M1 PO; +VANCOMYCIN HCL10 GM PO
== END 2018-06-08 19:49 | disposition home or self-care (01) ==
LOC: ER 17:44
DX: T18.8XXA Foreign body in other parts of alimentary tract, initial encounter (principal); K50.90 Crohn's disease, unspecified, without complications; I10 Essential (primary) hypertension; J45.909 Unspecified asthma, uncomplicated; K21.9 Gastro-esophageal reflux disease without esophagitis; F41.9 Anxiety disorder, unspecified; F32.9 Major depressive disorder, single episode, unspecified; M81.0 Age-related osteoporosis without current pathological fracture; I95.1 Orthostatic hypotension; Z90.49 Acquired absence of other specified parts of digestive tract; Z91.018 Allergy to other foods; Z88.0 Allergy status to penicillin; X58.XXXA Exposure to other specified factors, initial encounter; Y92.89 Other specified places as the place of occurrence of the external cause; Y93.89 Activity, other specified; Y99.8 Other external cause status

== ENCOUNTER 2018-08-16 09:31 | Inpatient (IN) | payer OTHER, MEDICARE ==
[~2018-08-16] VITALS: Ht 152.4 cm; Wt 40.8 kg
[2018-08-16 09:46] VITALS: BP 85/60
--- NOTE | 2018-08-16 11:10 | NUR ---
LAB REQUESTED TO BEDSIDE FOR SPECIMEN COLLECTION
[2018-08-16 13:04] LABS: ABSOLUTE NEUTROPHILS 3.4 thou/uL (1.4-8.2); BASOPHILS 0.5 % (0.0-2.0); EOSINOPHILS 0.2 % (0.0-3.0); HEMATOCRIT 43.7 % (37.0-47.0); HEMOGLOBIN 14.8 gm/dL (12.0-15.0); MCH 29.9 pg (26.0-34.0); MCHC 33.9 g/dL (28.0-37.0); MCV 88.4 fL (80.0-100.0); MONOCYTES 4.7 % (1.0-8.0); PLATELET COUNT 269 thou/uL (150-400); POLYS 84.6 % (36.0-66.0); RBC 4.94 mil/uL (4.20-5.00); RDW 13.5 % (10.5-14.5); WBC 4.3 thou/uL (4.0-11.0)
[2018-08-16 13:13] LABS: ANION GAP 18 mmol/L (7-16); BUN 101 mg/dL (7-18); CALCIUM 9.2 mg/dL (8.5-10.1); CHLORIDE 79 mmol/L (98-107); CO2 23 mmol/L (21-32); CREATININE 2.8 mg/dL (0.6-1.0); GLUCOSE 89 mg/dL (74-106); POTASSIUM 3.4 mmol/L (3.5-5.1); SODIUM 120 mmol/L (136-145)
[2018-08-16 13:22] LABS: TROPONIN-I <0.06 ng/mL (<0.06)
[2018-08-16 13:27] LABS: URINE BLOOD 1+ (Negative); URINE CLARITY SL CLOUDY; URINE COLOR YELLOW; URINE GLUCOSE-RANDOM* NEGATIVE (Negative); URINE KETONES TRACE (Negative); URINE NITRITE-REFLEX NEGATIVE (Negative); URINE PROTEIN (DIPSTICK) NEGATIVE (Negative); URINE UROBILINOGEN 0.2 E.U./dl (0.2-1.0)
[2018-08-16 13:29] LABS: URINE LEUKOCYTES-REFLEX 1+ (Negative)
[2018-08-16 13:30] LABS: ICTOTEST (BILI CONFIRMATORY) Negative (Negative); URINE BILIRUBIN NEGATIVE (Negative)
[2018-08-16 13:41] LABS: AMORPHOUS PHOSPHATES Many /LPF (None Seen); BACTERIA-REFLEX None Seen /HPF (None Seen); CASTS None Seen /LPF (None Seen); SQUAMOUS 0-3 Few /LPF (0-3); URINE RBC 0-2 Rare /HPF (0-2); URINE WBC-REFLEX 6-15 Few /HPF (0-5)
--- NOTE | 2018-08-16 13:54 | EKG ---
[place] [address] [facility] [place] [address] ELECTROCARDIOGRAM REPORT Name: KELLIE MONROY [id number] Admission: 08/16/18 Attend Phys: Discharge: Date of : 49 Report #: [id number] THIS REPORT FOR: //name// [facility] ED Test Date: 2018-08-16 Test Time: 11:05:24 Pat Name: KELLIE MONROY Department: Room: Gender: F Hitcher: as : 1945 Requested By: Joaquin Spears Order Number: [id number] MD: Riley Rosen Measurements Intervals [place] Rate: 97 P: 85 MT: 140 QRS: 82 QRSD: 97 T: 77 QT: 348 QTc: 442 Interpretive Statements Sinus rhythm Biatrial enlargement Borderline right axis deviation Compared to ECG 03/12/2017 08:57:59 Atrial abnormality now present Sinus tachycardia no longer present T-wave abnormality no longer present Electronically Signed On 08-16-2018 13:53:56 SQUEEGEE FINISHER by Riley Rosen [email or web address] <ELECTRONICALLY SIGNED> By: Riley Rosen MD 08/16/18 1353 1105 1105 Riley Rosen MD /BETHANY
[2018-08-16 15:12] VITALS: BP 81/59
[2018-08-16 15:20] VITALS: BP 87/62
--- NOTE | 2018-08-16 18:12 | NUR ---
PT RECEIVED FROM THER ER AT 1445 PER CART VERY WEAK AND SOMULENT. LIVES W/ DTR AND HAS BEEN FEELING SICK LAST FEW DAYS. SODIUM LOW. IV FLUIDS W/ BOLUS IN THE ER. PT DRINKING WATER READILY. VOIDED 200MLS PER BSC. NOT WANTING TO EAT BUR DENIES NAUSEA. ENC DRINKING. DTR AT BEDSIDE.
[2018-08-16 20:09] VITALS: BP 119/86
[2018-08-16 20:40] LABS: CALCIUM 8.6 mg/dL (8.5-10.1); CREATININE 2.6 mg/dL (0.6-1.0); POTASSIUM 3.7 mmol/L (3.5-5.1)
[2018-08-17 04:57] VITALS: BP 137/94
[2018-08-17 05:48] LABS: HEMATOCRIT 38.8 % (37.0-47.0); MCH 30.3 pg (26.0-34.0)
[2018-08-17 05:49] LABS: HEMOGLOBIN 13.1 gm/dL (12.0-15.0); MCHC 33.7 g/dL (28.0-37.0); PLATELET COUNT 171 thou/uL (150-400); RBC 4.31 mil/uL (4.20-5.00); RDW 13.5 % (10.5-14.5); WBC 3.3 thou/uL (4.0-11.0)
--- NOTE | 2018-08-17 07:00 | NUR ---
Pt. rested quietly during the night when checked on during frequent rounds. She offers no c/o pain or discomfort. Up to the bedside comode with assist- ance of one. Bed alarm is on.
--- NOTE | 2018-08-17 07:25 | H ---
[facility] [place] [address] HISTORY AND PHYSICAL Name: KELLIE MONROY MEAGHAN Room #: 459-P ADM IN M.R.#: [id number] Admission: 08/16/18 Attend Phys: Tate Perez MD Discharge: Date of : 49 Report #: [id number] THIS REPORT FOR: //name// CC: Tate RIGGINS unknown DATE OF SERVICE: 08/16/2018 HISTORY OF PRESENT ILLNESS: The patient is a 72-year-old female who was brought to the Emergency Room with feeling weak and tired over the last week or so. Unfortunately, the patient sees me in my office, but she did not see me for a long period of time and actually, we called her to our office and she did not answer back to come for followup. The patient is known to have a history of C. diff. PAST MEDICAL HISTORY: Significant for anorexia, recurrent C. difficile colitis, cachexia, Crohn's disease, dehydration, dysphagia, generalized weakness, hypomagnesemia, hyponatremia, leukopenia, severe protein calorie malnutrition, renal insufficiency, syncopal episode and urinary tract infection. MEDICATIONS: Reviewed and reconciled. ALLERGIES: LACTOSE AND PENICILLIN. SOCIAL HISTORY: The patient denies any smoking, alcohol use or drug use. FAMILY HISTORY: Noncontributory. REVIEW OF SYSTEMS: The patient denies any headache, blurred vision, runny nose, sore throat, cough, chest pain, shortness of breath or palpitation. She denies any nausea or vomiting or abdominal pain. She is having diarrhea that is more than usual. She denies any pain in the arms or legs, but she is complaining of generalized weakness. PHYSICAL EXAMINATION: VITAL SIGNS: Showed a temperature of 97.5, pulse 82, respirations 18, blood pressure 85/60. HEAD AND NECK: Unremarkable. NECK: Supple. LUNGS: Clear to auscultation. CARDIAC: S1, S2. ABDOMEN: Benign. Bowel sounds were positive. The patient had ileostomy on the right lower quadrant of the abdomen that has a very thin watery stool. EXTREMITIES: Without any edema. Chest x-ray showed no acute process. Lactic acid was 1.3. Influenza A and B [facility] [address] [place] [address] HISTORY AND PHYSICAL Name: KELLIE MONROY MEAGHAN Room #: 459-P ADM IN [facility]#: [id number] Admission: 08/16/18 Attend Phys: Tate Perez MD Discharge: Date of : 49 Report #: [id number] were not detected. CBC showed a white count of 4.3, hemoglobin 14.8, hematocrit 43.7, platelet count 268, neutrophils are 84%. Basic metabolic panel showed a sodium of 120, potassium 3.4, chloride 79, bicarbonate 23, BUN 101, creatinine 2.8, glucose 89, calcium 9.2. Troponin less than 0.06. Urinalysis showed trace ketones, blood +1, leukocyte +1, white blood cells 6-15, red blood cells 0-2. A 12-lead EKG shows sinus rhythm with bilateral atrial enlargement, borderline right axis deviation. ASSESSMENT AND PLAN: 1. Hyponatremia. 2. Acute respiratory failure. 3. Diarrhea. 4. Crohn's disease. 5. Severe protein calorie malnutrition. The patient was admitted to the hospital with the above mentioned diagnoses. I feel that the patient's hyponatremia is related to her dehydration, especially with the acute renal failure. I will treat the patient, for now, with gentle IV hydration with normal saline and potassium replacement. We are checking her BMP level again at 8:00 tomorrow morning. We are to resume her Remeron, but hold her Paxil. The patient to resume her midodrine for hypotension, and I will go ahead and resume the patient's Marinol to improve her appetite. I will ask for starting the patient on Ensure 1 can 3 times a day. We will have physical therapy and occupational therapy to work with the patient. <ELECTRONICALLY SIGNED> By: Tate Perez MD 08/17/18 0725 [id number] Tate Perez MD /nt
[2018-08-17 08:07] LABS: ABSOLUTE NEUTROPHILS 1.1 thou/uL (1.4-8.2); PLATELET ESTIMATE NORMAL
[2018-08-17 08:08] VITALS: BP 87/61
[2018-08-17 08:08] LABS: LARGE PLATELETS SEVERAL
[2018-08-17 09:48] LABS: ALBUMIN 3.3 g/dL (3.4-5.0); CALCIUM 8.1 mg/dL (8.5-10.1); CREATININE 1.8 mg/dL (0.6-1.0); POTASSIUM 3.2 mmol/L (3.5-5.1); TOTAL BILIRUBIN 0.8 mg/dL (<0.1-1.0); TOTAL PROTEIN 6.1 g/dL (6.4-8.2)
--- NOTE | 2018-08-17 10:17 | NUR ---
AAO. APPETITE BRISK. RD ORDERS SUPPLENMENT. SHE IS NOT LACTOSE INTOLERANT; THAT ALLERGY DISCONTINUED. REMAINS IN CDT ISOLATION. FREQUENT CHECKS; WILL CONTINUE TO MONITOR.
--- NOTE | 2018-08-17 15:30 | NUR ---
PT ADMITTED RELATED TO HYPONATREMIA. CM REVIEWED CHART AND SPOKE WITH CARE TEAM. CM MET WITH PT AT BEDSIDE THIS DAY. PT IS A&O X4. CM ROLE INTRODUCED. PT INDICATED SHE LIVES IN A HOUSE WITH HER DTR CHALO WITH 3 STEPS TO ENTER AND NO STEPS PT USES INSIDE. 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 PT HAS BEEN TO [facility] AND [facility]ILL[facility] IN THE PAST. PT INDICATED SHE PLANS TO RETURN HOME ONCE MEDICALLY STABLE. CM TO FOLLOW INDICATED WITH DC PLANNING.
--- NOTE | 2018-08-17 16:14 | NUR ---
BORING INSPECTOR activated due to syncope-see flowsheet
[2018-08-17 20:00] VITALS: BP 83/48
[2018-08-18 00:20] VITALS: BP 89/41
--- NOTE | 2018-08-18 02:14 | NUR ---
PT RESTED THROUGHOUT THE NIGHT NO COMPLAINTS OF PAIN PT USED CALL LIGHT EFFECTIVELY.
[2018-08-18 04:10] VITALS: BP 85/57
[2018-08-18 05:11] LABS: ABSOLUTE NEUTROPHILS 2.6 thou/uL (1.4-8.2); BASOPHILS 1.2 % (0.0-2.0); EOSINOPHILS 2.9 % (0.0-3.0); HEMATOCRIT 36.7 % (37.0-47.0); HEMOGLOBIN 12.4 gm/dL (12.0-15.0); LYMPHOCYTES 22.1 % (24.0-44.0); MCH 30.2 pg (26.0-34.0); MCHC 33.8 g/dL (28.0-37.0); MCV 89.4 fL (80.0-100.0); PLATELET COUNT 202 thou/uL (150-400); POLYS 62.8 % (36.0-66.0); RBC 4.11 mil/uL (4.20-5.00); RDW 13.6 % (10.5-14.5); WBC 4.2 thou/uL (4.0-11.0)
[2018-08-18 05:27] LABS: CREATININE 1.5 mg/dL (0.6-1.0)
[2018-08-18 05:37] LABS: POTASSIUM 2.9 mmol/L (3.5-5.1)
[2018-08-18 07:43] VITALS: BP 97/60
--- NOTE | 2018-08-18 14:21 | NUR ---
ASSUMED CARE OF PT AROUND 1145, ALERT, CONFUSED, ORIENT EACH TIME I ENTER ROOM. SET UP FOR LUNCH, TAKES PILLS ONE AT A TIME, NO APPARENT CHOKING ISSUES, EDUCATION ON HOW TO USE THE CALL LIGHT FOR ANY NEEDS, ISO FOR CDIFF. NO STOOL THUS FAR IN MY EXISTING SHIFT
--- NOTE | 2018-08-18 15:12 | EKG ---
[address] [address] ELECTROCARDIOGRAM REPORT Name: KELLIE MONROY Room #: 459-P ADM IN M.R.#: [id number] Admission: 08/16/18 Attend Phys: Tate Perez MD Discharge: Date of : 49 Report #: [id number] THIS REPORT FOR: //name// [facility] Test Date: 2018-08-17 Test Time: 16:13:12 Pat Name: KELLIE MONROY Department: Room: 459 Gender: F Commercial Development Manager: Andrew JIANG : 1945 Requested By: Tate Perez Order Number: [id number] MD: Rilye Rosen Measurements Intervals [place] Rate: 69 P: 92 DC: 124 QRS: 76 QRSD: 131 T: 85 QT: 420 QTc: 450 Interpretive Statements Sinus rhythm Atrial premature complexes Nonspecific intraventricular conduction delay Compared to ECG 08/16/2018 11:05:24 Atrial premature complex(es) now present Intraventricular conduction delay now present Atrial abnormality no longer present Electronically Signed On 08-18-2018 15:12:03 [employer] by Riley Rosen [email or web address] <ELECTRONICALLY SIGNED> By: Riley Rosen MD 08/18/18 1512 1613 161 Riley Rosen MD /EPI
--- NOTE | 2018-08-18 18:25 | NUR ---
PT IS NOT ACCU CHECKS YET TYSON TOOK IT, SHE WAS LOW, GAVE HER APPLE JUICE, PEANUT BUTTER AND CRACKERS, AND A POPSICLE, WILL REPORT OFF TO HS STAFF TO CHECK IT AGAIN LATER THIS EVENING, AILYN, TO ENSURE SAFETY. ASYMPTOMATIC YET ALSO STATES SHE HAS NO APPETITE. IS OVERWHELMED W/THE FOOD. EACH TIME WE ENTER THE ROOM WE ENCOURAGE HER INTAKE, SHE'LL OBLIGE
[2018-08-18 19:48] VITALS: BP 89/52
--- NOTE | 2018-08-19 02:31 | NUR ---
PT HAD LOW BS DURING THE NIGHT PROVIDER CALLED PT PUT ON ACCU CHECKS AND HYPOGLYCEMIA PROTOCOL. PT RESTED THROUGH MOST OF THE NIGHT.
[2018-08-19 04:15] VITALS: BP 98/71
[2018-08-19 07:26] VITALS: BP 112/74
[2018-08-19 08:25] LABS: ABSOLUTE NEUTROPHILS 3.7 thou/uL (1.4-8.2); BASOPHILS 0.7 % (0.0-2.0); EOSINOPHILS 2.3 % (0.0-3.0); HEMATOCRIT 36.2 % (37.0-47.0); HEMOGLOBIN 11.8 gm/dL (12.0-15.0); LYMPHOCYTES 18.8 % (24.0-44.0); MCH 29.4 pg (26.0-34.0); MCHC 32.7 g/dL (28.0-37.0); MONOCYTES 7.1 % (1.0-8.0); PLATELET COUNT 203 thou/uL (150-400); POLYS 71.1 % (36.0-66.0); RBC 4.02 mil/uL (4.20-5.00); RDW 13.8 % (10.5-14.5); WBC 5.1 thou/uL (4.0-11.0)
[2018-08-19 08:36] LABS: CALCIUM 8.1 mg/dL (8.5-10.1); CREATININE 1.3 mg/dL (0.6-1.0); POTASSIUM 3.3 mmol/L (3.5-5.1)
--- NOTE | 2018-08-19 16:06 | NUR ---
SHIFT SUMMARY: PATIENT ALERT AND ORIENTED AND HAS DENIED ANY PAIN. VITALS STABLE. REFUSED SOME HER PILLS STATING THAT THEY ARE TOO BIG AND GET STUCK IN THE BACK OF HER THROAT AND THEY CANNOT BE CRUSHED. OTHERWISE POOR APPETITE NOTED. WILL CONTINUE WITH PLAN OF CARE.
[2018-08-19 16:24] VITALS: BP 104/87
[2018-08-19 19:15] VITALS: BP 86/62
[2018-08-19 19:46] LABS: CALCIUM 8.7 mg/dL (8.5-10.1); CREATININE 1.3 mg/dL (0.6-1.0); MAGNESIUM 1.1 mg/dL (1.8-2.4)
--- NOTE | 2018-08-20 01:38 | NUR ---
PATIENT ASSESSED AND IS ALERT X 4. SKIN ARM AND DRY. HAS POOR APPETITE. ENCOURDGED TO DRINK FLUIDS. IS FORGETFUL AT TIMES. NO EDEMA NOTED. IS IN ISOLATION FOR C-DIFF. HAS A ILEOSTOMY WITH GREENISH CLAR LIQUID. IS VERY FRAIL LOOKING. HAS A RIGHT EJ THE FLUIDS INFUSE WELL THROUGH IT. UP WITH 1 PERSON ASSIST TO BED AND BACK. ROSY WELL. TELE- SHOWS SSA. REFUSES TO TAKES BIG PILLS. POTASSIUM TABS CRUSHED AND GIVEN TO PATIENT BECAUSE POTASSIUM LEVEL WAS LOW THIS AM. LUNGS CTA-DISM.02 AT 5LNC. DENIES ANY SOA. REPOSITIONED PRN.REMAINS POOR APPETITE. IV SITE HEALTHY. CONT PLAN OF CARE.NO SKIN ISSUES NOTED.
[2018-08-20 03:48] VITALS: BP 88/63
--- NOTE | 2018-08-20 04:01 | NUR ---
MESSAGE LEFT X 2 AT 0311 AND 0356. PATIEWNT HAVING SOME ELEVATED ST SEGMENT ON TELE. HAVING NO SIDE EFFECTS. SLEEPING. CALLED AND LEFT 2 MESSAGES AND NO WORD BACK YET.
[2018-08-20 08:05] VITALS: BP 87/59
--- NOTE | 2018-08-20 12:39 | NUR ---
PT LEFT HOSPITAL AGAINST MEDICAL ADVICE. LEFT MESSAGE WITH DR. SNYDER'S ANSWERING SERVICE ADVISING HIM OF PT DECISION. NOTIFIED HOUSE SUP. REMOVED IV AND TELE. PT LEFT VIA WHEELCHAIR TO PRIVATE VEHCILE.
== END 2018-08-20 12:47 | disposition left against medical advice (07) | DRG 371 ==
LOC: ER 09:31 → 4W 14:20 → EROBS 14:20 → 4W 15:30
PROVIDERS: Family Medicine; Physician Assistant; ADMIT Internal Medicine
DX: A04.72 Enterocolitis due to Clostridium difficile, not specified as recurrent (principal); E43 Unspecified severe protein-calorie malnutrition; J96.00 Acute respiratory failure, unspecified whether with hypoxia or hypercapnia; N17.9 Acute kidney failure, unspecified; E87.1 Hypo-osmolality and hyponatremia; K50.90 Crohn's disease, unspecified, without complications; Z68.1 Body mass index [BMI] 19.9 or less, adult; E87.6 Hypokalemia; I95.89 Other hypotension; I10 Essential (primary) hypertension; E86.0 Dehydration; K21.9 Gastro-esophageal reflux disease without esophagitis; J45.909 Unspecified asthma, uncomplicated; F41.9 Anxiety disorder, unspecified; F32.9 Major depressive disorder, single episode, unspecified; M81.0 Age-related osteoporosis without current pathological fracture; Z86.14 Personal history of Methicillin resistant Staphylococcus aureus infection; Z90.49 Acquired absence of other specified parts of digestive tract; Z90.3 Acquired absence of stomach [part of]; Z79.899 Other long term (current) drug therapy; Z88.0 Allergy status to penicillin; Z88.8 Allergy status to other drugs, medicaments and biological substances; Z87.440 Personal history of urinary (tract) infections; Z53.21 Procedure and treatment not carried out due to patient leaving prior to being seen by health care provider
CPT/HCPCS: 10045